=== PATIENT | female | born 1955 | race Caucasian/White ===

== ENCOUNTER 2021-03-14 23:57 | Inpatient (IN) | payer OTHER ==
[~2021-03-14] VITALS: Ht 165.1 cm; Wt 113.4 kg
--- NOTE | ~2021-03-14 | EMS ---
[facility] [address] [place] [address] EMS Patient Care Report Name: TRESA VERGARA Room #: 451-P ADM IN M.R.#: [id number] Admission: 03/15/21 Attend Phys: Brooke Barber MD Discharge: Date of : 59 Report #: [id number] THIS REPORT FOR: //name// Report Transmitted: 03/17/2021 10:23 EMS Care Summary [place], [place]/[facility] Incident [id number] @ 03/14/2021 23:29 Incident Location [address] [place] [id number] Patient TRESA VERGARA Female, 66 Years 1955 Patient Address Patient History Multiple Sclerosis, Chief Complaint dizziness Disposition Transported No Lights/[place] Dispatch Reason Unconscious/Fainting Transported To [facility] Narrative pt met at the front door pt went back to chair and sat down. possible otto per dispatch. pt a&ox4 gcs 15 and did not present in apparent distress. ems asked pt from doorway if she is covid positive. pt stated "I dont know what that means". ems asked pt multiple times about her covid status and how that is imperative information before continuing. pt stated she is negative. pt complained of dizziness and nausea x1 week. pt stated she has ms and the exacerbations present this way. pt requested to be transported to [facility]. pt walked to ems cot at front [facility]. pt was transferred onto ems cot and was secured in a semi fowlers position without incident. pt was loaded into ambulance. pt was transported non emergent. transport was uneventful and pt [facility] [address] [place] [address] EMS Patient Care Report Name: TRESA VERGARA Room #: 451-P ADM IN M.R.#: [id number] Admission: 03/15/21 Attend Phys: Brooke Barber MD Discharge: Date of : 59 Report #: [id number] rested on ems cot. pt care was transferred to appropriate staff and ems goes back in service. at hospital pt stated to staff that she is suicidal and attempted to kill herself several days ago. pt made no statement of si to ems. pts cane was left with pt. Initial Vitals @23:42P: 80,R: 20,BP: 194/72,Pain: 0/10,GCS: 15,SpO2: 94,Revised Trauma: 12, @23:50R: 20,BP: 188/74,GCS: 15,SpO2: 98,Revised Trauma: 12, Assessments @23:33MENTAL:No Abnormalities,SKIN:No Abnormalities,HEENT:Head/Face: No Abnormalities,Eyes: No Abnormalities,Neck/Airway: No Abnormalities,LUNG SOUNDS:General: No Abnormalities,Left Upper: No Abnormalities,Right Upper: No Abnormalities,Left Lower: No Abnormalities,Right Lower: No Abnormalities,ABDOMEN:General: No Abnormalities,Left Upper: No Abnormalities,Right Upper: No Abnormalities,Left Lower: No Abnormalities,Right Lower: No Abnormalities,PELVIS//GI:No Abnormalities,EXTREMITIES:Left Arm: No Abnormalities,Right Arm: No Abnormalities,Left Leg: No Abnormalities,Right Leg: No Abnormalities,PULSE:NEURO:No Abnormalities,@23:49MENTAL:No Abnormalities,SKIN:No Abnormalities,HEENT:Head/Face: No Abnormalities,Eyes: No Abnormalities,Neck/Airway: No Abnormalities,LUNG SOUNDS:General: No Abnormalities,Left Upper: No Abnormalities,Right Upper: No Abnormalities,Left Lower: No Abnormalities,Right Lower: No Abnormalities,ABDOMEN:General: No Abnormalities,Left Upper: No Abnormalities,Right Upper: No Abnormalities,Left Lower: No Abnormalities,Right Lower: No Abnormalities,PELVIS//GI:No Abnormalities,EXTREMITIES:Left Arm: No Abnormalities,Right Arm: No Abnormalities,Left Leg: No Abnormalities,Right Leg: No Abnormalities,PULSE:NEURO:No Abnormalities, Impression Dizziness Procedures @23:33 ALS Assessment Response: UnchangedSucceeded Timeline 23:27,Call Received 23:27,Dispatch Notified 23:29,Dispatched 23:30,En Route 23:32,On Scene 23:33,At Patient 23:33,ALS Assessment,Response: UnchangedSucceeded, 23:42,BP: 194/72 M,PULSE: 80,RR: 20 R,SPO2: 94 Ox,ETCO2: ,BG: ,PAIN: 0,GCS: 15, 23:44,Depart Scene [address] [place] [address] EMS Patient Care Report Name: MERRICKEDOUARDTRESABENIGNO TUTTLE Room #: 451-P [facility] IN .R.#: [id number] Admission: 03/15/21 Attend Phys: Brooke Barber MD Discharge: Date of : 59 Report #: [id number] 23:50,BP: 188/74 M,PULSE: ,RR: 20 R,SPO2: 98 Ox,ETCO2: ,BG: ,PAIN: ,GCS: 15, 23:53,At Destination 00:11,Call Closed Disclaimer v1.1 Copyright 2020 [employer] This EMS Care Summary contains data elements from the applicable legal record (which may be displayed differently). It is designed to provide pertinent information for the following purposes: continuity of care, clinical quality, and state data reporting. The complete legal record is available to ED staff and administrators of the receiving hospital in [employer]'s Patient Tracker. All data is provided "as is."
[2021-03-14 23:58] VITALS: BP 185/95
[2021-03-15] MEDS ORDERED: TECFIDERA240 MG PO ×2 (00:23→03:20)
[2021-03-15] MEDS ORDERED: LISINOPRIL-HCT1 EAC1 PO (00:23)
[2021-03-15] MEDS ORDERED: FUROSEMIDE 20 M20 M1 PO (00:23)
[2021-03-15] MEDS ORDERED: FARXIGA10 MG PO ×2 (00:23→03:20)
[2021-03-15] MEDS ORDERED: PROZAC20 MG PO (00:23)
[2021-03-15] MEDS ORDERED: MYRBETRIQ50 MG PO (00:23)
[2021-03-15] MEDS ORDERED: METFORMIN HCL500 MG PO (00:24)
[2021-03-15] MEDS ORDERED: METOPROLOL TART25 MG PO (00:24)
[2021-03-15] MEDS ORDERED: POTASSIUM CHLO10 ME1 PO (00:24)
[2021-03-15] MEDS ORDERED: DULOXETINE HCL60 MG PO (00:24)
[2021-03-15 00:27] LABS: ABSOLUTE NEUTROPHILS 5.8 thou/uL (1.4-8.2); BASOPHILS 0.4 % (0.0-2.0); EOSINOPHILS 0.1 % (0.0-3.0); HEMATOCRIT 42.7 % (37.0-47.0); HEMOGLOBIN 13.7 gm/dL (12.0-15.0); LYMPHOCYTES 7.2 % (24.0-44.0); MCH 26.1 pg (26.0-34.0); MCHC 32.1 g/dL (28.0-37.0); MCV 81.3 fL (80.0-100.0); MONOCYTES 8.2 % (1.0-8.0); PLATELET COUNT 318 thou/uL (150-400); POLYS 84.1 % (36.0-66.0); RBC 5.25 mil/uL (4.20-5.00); RDW 17.3 % (10.5-14.5); WBC 6.9 thou/uL (4.0-11.0)
[2021-03-15 00:34] LABS: ANION GAP 10 mmol/L (7-16); BUN 11 mg/dL (7-18); CALCIUM 9.6 mg/dL (8.5-10.1); CHLORIDE 98 mmol/L (98-107); CO2 26 mmol/L (21-32); CREATININE 0.9 mg/dL (0.6-1.0); GLUCOSE 161 mg/dL (74-106); POTASSIUM 4.1 mmol/L (3.5-5.1); SODIUM 134 mmol/L (136-145)
[2021-03-15 00:45] LABS: ALBUMIN 3.3 g/dL (3.4-5.0); SGOT 20 U/L (15-37); SGPT 21 U/L (30-65); TOTAL BILIRUBIN 0.4 mg/dL (0.2-1.0); TOTAL PROTEIN 7.5 g/dL (6.4-8.2)
[2021-03-15 00:50] LABS: SALICYLATE < 2.0 mg/dL (2.8-20.0)
[2021-03-15 02:28] LABS: URINE BILIRUBIN NEGATIVE (Negative); URINE BLOOD 3+ (Negative); URINE CLARITY CLEAR; URINE COLOR YELLOW; URINE GLUCOSE-RANDOM* 3+ (Negative); URINE KETONES 2+ (Negative); URINE LEUKOCYTES-REFLEX NEGATIVE (Negative); URINE NITRITE-REFLEX NEGATIVE (Negative); URINE PROTEIN (DIPSTICK) 1+ (Negative); URINE SPECIFIC GRAVITY 1.025 (1.005-1.035); URINE UROBILINOGEN 0.2 E.U./dl (0.2-1.0)
[2021-03-15 02:35] LABS: AMP/METHAMP Negative (Negative); BARBITURATES Negative (Negative); BENZODIAZEPINES Negative (Negative); COCAINE Negative (Negative); METHADONE Negative (Negative); OPIATES Negative (Negative); PCP Negative (Negative)
[2021-03-15 02:59] LABS: BACTERIA-REFLEX 1-9 Few /HPF (None Seen); SQUAMOUS 0-3 Few /LPF (0-3); URINE WBC-REFLEX 0-5 Rare /HPF (0-5)
[2021-03-15 03:00] LABS: AMORPHOUS URATES Moderate /LPF (None Seen); CASTS None Seen /LPF (None Seen); MUCUS 0-3 Light strn/LPF (None Seen)
[2021-03-15] MEDS ORDERED: LIPITOR 10 MG10 M1 PO (03:19)
--- NOTE | 2021-03-15 07:11 | EKG ---
[place] [address] [facility] [place] [address] ELECTROCARDIOGRAM REPORT Name: TRESA VERGARA Room #: 170-6 ADM IN M.R.#: [id number] Admission: 03/15/21 Attend Phys: Hayes Troy MD Discharge: Date of : 59 Report #: [id number] [facility] ED Test Date: 2021-03-15 Test Time: 00:05:06 Pat Name: TRESA VERGARA Department: Room: 170 Gender: F Emergency Service Worker: MPARK : 1955 Requested By: Yajaira Hauser Order Number: [id number] MD: Wyatt lAvarez Measurements Intervals [place] Rate: 73 P: 35 TN: 160 QRS: 15 QRSD: 94 T: 58 QT: 381 QTc: 420 Interpretive Statements Sinus rhythm LVH by voltage Nonspecific T abnormalities, lateral leads Artifact in lead(s) I,II,aVR,V1,V2,V3,V4,V5,V6 Compared to ECG 12/03/2005 12:16:25 Left ventricular hypertrophy now present T-wave abnormality now present Electronically Signed On 03-15-2021 7:10:55 KEYSMITH by Wyatt Alvarez [email or web address] <ELECTRONICALLY SIGNED> By: Wyatt Alvarez MD, FACC 03/15/21 0710 0005 0005 Wyatt Alvarez MD, [facility] /EPI
[2021-03-15 08:00] VITALS: BP 185/88
[2021-03-15 12:00] VITALS: BP 163/58
[2021-03-15 16:00] VITALS: BP 140/77
[2021-03-15 18:10] VITALS: BP 152/71
[2021-03-15 19:40] VITALS: BP 151/50
[2021-03-15 20:04] VITALS: BP 150/67
[2021-03-16] VITALS (8 sets, daily range): BP systolic 148–163; BP diastolic 55–124
--- NOTE | 2021-03-16 05:10 | NUR ---
PATIENT AOX4 MAKES NEEDS KNOWN. PATIENT ADMITTED FOR UTI AND BLE CELLULITS. BLE HAS REDNESS AND DISCOLATION NO OPEN AREAS. PATIENT UPSET BECAUSE SHE LEFT HER POCKET BOOK AND HAS NO CONTACT NUMBERS FOR HER FAMILY, PROJECT MANAGEMENT DIRECTOR CONSULTED. PATIENT HAD SUCIDAL IDELATION BUT HAS NO PLAN <<I AM SCARED TO HURT MYSELF>>. PATIENT IS ABLE TO CONTRACT FOR SAFETY, NECK BAND MAKER NOTIFIED, NO NEED FOR 1:1. FALL PRECAUTION IN PLACE. PAIN CONTROLLED THIS SHIFT. PATIENT IN BED ASLEEP AT THIS TIME BREATHING REGULAR AND UNLABOURED.
[2021-03-16 05:38] LABS: HEMATOCRIT 42.3 % (37.0-47.0); HEMOGLOBIN 13.9 gm/dL (12.0-15.0); MCH 26.6 pg (26.0-34.0); MCHC 32.9 g/dL (28.0-37.0); MCV 80.7 fL (80.0-100.0); RBC 5.25 mil/uL (4.20-5.00); RDW 17.2 % (10.5-14.5); WBC 5.3 thou/uL (4.0-11.0)
[2021-03-16 06:06] LABS: CALCIUM 9.3 mg/dL (8.5-10.1); CREATININE 0.9 mg/dL (0.6-1.0); POTASSIUM 3.6 mmol/L (3.5-5.1)
--- NOTE | 2021-03-16 12:41 | 2DMMODE ---
[facility] [place] [address] 2 D/M-MODE ECHOCARDIOGRAM Name: TRESA VERGARA Room #: 451-P ADM IN M.R.#: [id number] Admission: 03/15/21 Attend Phys: Brooke Barber MD Discharge: Date of : 59 Report #: [id number] THIS REPORT FOR: cc: NO FAMILY PHYSICIAN or PCP NO FAMILY PHYSICIAN or PCP Garalnd Kline MD ~ APPROVED REPORT Study performed: 03/16/2021 11:20:17 EXAM: Comprehensive 2D, Doppler, and color-flow Echocardiogram Patient Location: Bedside Room #: [facility] Status: routine BSA: 2.17 HR: 60 bpm BP: 148/79 mmHg Rhythm: NSR Other Information Study Quality: Fair Technically limited study due to body habitus. Indications Diabetes Hypertension/HDD Morbid obesity Volumes Left Atrial Volume (Systole) Single Plane 4CH: 63.51 mL Single Plane 2CH: 42.11 mL LA ESV Index: 26.00 mL/m2 Aortic Valve AoV Peak Donny.: 1.48 m/s AO Peak Gr.: 8.77 mmHg LVOT Max P.94 mmHg LVOT Max V: 1.22 m/s Mitral Valve E/A Ratio: 0.8 MV Decel. Time: 334.66 ms MV E Max Donny.: 0.64 m/s MV A Donny.: 0.83 m/s [facility] [address] [place] [address] 2 D/M-MODE ECHOCARDIOGRAM Name: TRESA VERGARA Room #: 451-P ADM IN M.R.#: [id number] Admission: 03/15/21 Attend Phys: Dana Anderson Discharge: Date of : 59 Report #: [id number] MV PHT: 97.05 ms IVRT: 129.18 ms Pulmonary Valve PV Peak Donny.: 1.28 m/s PV Peak Gr.: 6.56 mmHg Pulmonary Vein P Vein S: 0.37 m/s P Vein A: 0.28 m/s P Vein D: 0.36 m/s P Vein A Dur.: 133.8 msec P Vein S/D Ratio: 1.03 Tricuspid Valve TR Peak Donny.: 2.59 m/s TR Peak Gr.: 26.78 mmHg PA Pressure: 27.00 mmHg Left Ventricle The left ventricle is normal size. There is normal LV segmental wall motion. There is normal left ventricular wall thickness. The left ventricular systolic function is normal. The left ventricular ejection fraction is within the normal range. LVEF is 55-60%. This study is not technically sufficient to allow evaluation of the LV diastolic function due to atrial fibrillation. Right Ventricle The right ventricle is normal size. The right ventricular systolic function is normal. Atria The left atrium size is normal. The right atrium size is normal. Aortic Valve The aortic valve is normal in structure. No aortic regurgitation is present. There is no aortic valvular stenosis. Mitral Valve The mitral valve is normal in structure. Mild mitral regurgitation. No evidence of mitral valve stenosis. Tricuspid Valve The tricuspid valve is normal in structure. There is trace to mild tricuspid regurgitation. Estimated PAP 27mmHg plus the right atrial pressure. There is no pulmonary hypertension. Pulmonic Valve [facility] [address] [place] [address] 2 D/M-MODE ECHOCARDIOGRAM Name: TRESA VERGARA Room #: 451-P [facility] IN ..#: [id number] Admission: 03/15/21 Attend Phys: Dana Anderson Discharge: Date of : 59 Report #: [id number] The pulmonary valve is normal in structure. There is no pulmonic valvular regurgitation. Great Vessels The aortic root is normal in size. IVC is not well visualized. Pericardium There is no pericardial effusion. <Conclusion> The left ventricle is normal size. There is normal LV segmental wall motion. LVEF is 55-60%. The right ventricle is normal size. The aortic valve is normal in structure. The mitral valve is normal in structure. Mild mitral regurgitation. The tricuspid valve is normal in structure. There is trace to mild tricuspid regurgitation. Estimated PAP 27mmHg plus the right atrial pressure. There is no pulmonary hypertension. The pulmonary valve is normal in structure. The aortic root is normal in size. There is no pericardial effusion. <ELECTRONICALLY SIGNED> By: Garland Kline MD 03/16/21 1241 [id number] [id number] Garland Kline MD /INF
--- NOTE | 2021-03-16 13:00 | NUR ---
Triggered d/t high BMI. Pt noted admitted with BLE cellulitis and UTI. On ABT, KCl, lasix, metformin, statin and HCTZ. PMH includes DMII, HLD, HTN, MS? and depression. [facility], reporting no changes in weight or appetite recently, however her dtr recently and she is grieving her loss. Past reports of SI, but pt with no intent at this time. BMI 41.6, pt not appropriate for nutrition education at this time r/t life events. Follow weight trends. Low nutrition risk at this time. FOOD ALLERGY: SHELLFISH.
--- NOTE | 2021-03-16 13:59 | NUR ---
PT ADMITTED RELATED TO CELLULITIS; UTI; AND UNABLE TO AMBULATE. CM REVIEWED CHART AND SPOKE WITH CARE TEAM. CM MET WITH PT AT BEDSIDE THIS DAY. PT APPEARED TO BE A&O X4. CM ROLE INTRODUCED. PT INDICATED SHE LIVES IN A HOUSE ALONE. PT INDICATED THERE ARE 2 STEPS TO ENTER, 2 STEPS THROUGH GARAGE, AND 28 STEPS TO BASEMENT LAUNDRY. PT INDICATED THAT SHE HAS A QUAD CANE FOR HOME USE. PT INDICATED SHE HAD BEEN INDEPENDENT WITH ADLS GROUND OPERATIONS SUPERVISOR. PT INIDCATED SHE HAD HH A LONG TIME AGO AND SAID SHE WOULD BE RECPTIVE TO HAVING IT AGAIN UPON DC IF RECOMMENDED. PT DOESN'T HAVE HER CELL PHONE. SHE DOESN'T KNOW HER SISTER'S NUMBER OR THAT OF HER SON IN LAW EDILSON MATA. PT'S DTR PASSED LAST WEEK AND PT IS GRIEVING. SHE INDICATED SISTER WOULD BE BEST CONTACT FOR HER OR EDILSON. SHE HAS THREE GRANDKIDS, 18,15, AND 12. PT COULDN'T RECALL HER PCP BUT SEES DR. TRE SANTOS FOR NEUROLOGY AT [facility]. CM CALLED DOCTOR'S OFFICE TO SEE IF THEY HAVE A GOOD NUMBER FOR PT'S SISTER LANA THE ONE WE HAVE ON FILE ISN'T A WORKING NUMBER. VM LEFT. PSYC CONSULTED. CM FOLLOWING REGARDING DC PLANNING.
--- NOTE | 2021-03-16 17:53 | NUR ---
ASSUMED CARE AT SHIFT CHANGE. PT A/O X 4. CALM AND PLESANT THROUGHOUT SHIFT. WORKED WITH THERAPY THIS AFTERNOON WITH [facility] [employer]. MRI HEAD COMPLETE. PT STATES FEELING BETTER. PSYCH CONSULT COMPLETE. PT IN GOOD SPIRITS MOST OF THE DAY, ONLY STATING "ALOT HAS HAPPENED THIS MONTH" IN REGARDS TO LOSS OF DAUGHTER, GEOVANNA. PT TALKED WITH FAMILY ON THE PHONE AND SHOWERED TODAY WELL. PROGRESSING TOWARDS POC GOALS.
[2021-03-17 07:00] VITALS: BP 150/69
--- NOTE | 2021-03-17 07:54 | NUR ---
Assumed pt care at 1900. A/OX4,pleasant with staff. Denies SI/HI,had a lengthy talk with the station worker at shift change and verbalized feeling better. Up with SBA/cane to the bathroom. Continent of B&B. C/o migraine,medicated per EMAR with relief reported. Fall precautions in place,calls approp for help.
--- NOTE | 2021-03-17 15:26 | NUR ---
CARE TEAM IDNICATED THAT PT HAD MILD HYDROCEPHALUS. HOSPITALIST CONSULTED NEURO SURGERY. CM SENT REFERRAL FOR HH SERVICES TO [facility] THEY HAVE PSYC NURSING. THEY ARE ABLE TO ACCEPT PT AND CAN DO A SOC ON SATURDAY. DR. RAMSAY INDICATED SHE WOULD FOLLOW FOR HOME HEALTH UNTIL PT IS ESTABLISED WITH PCP. CM TO SET PT U WITH PCP APPOINTMENT HERE UPON DC. SHOULD PT BE MEDICALLY STABLE TO DC HOME OVER THE WEEKEND CALL [facility] AND FAX ORDERS TO . PT WILL CALL FRIEND OF SON IN LAW FOR TRANSPORT HOME.
[2021-03-17] MEDS ORDERED: LYMEPAK100 MG PO (15:28)
[2021-03-17] MEDS ORDERED: MECLIZINE HCL25 MG PO (15:29)
[2021-03-17] MEDS ORDERED: NORVASC5 MG PO (15:33)
[2021-03-17] MEDS ORDERED: BUTALB-APAP-CA1 EACH PO (15:48)
[2021-03-17 18:03] VITALS: BP 131/70
--- NOTE | 2021-03-17 20:11 | NUR ---
Assumed pt care this am vs stable, POC followed with no signs or verbalizations of distrerss noted. Pt has expressed concern with regards to the neuro findings of hydrocephalus. Wanted the MD to explain more since she had more questions, advised to talk to the MD in the am. Expressed concern regarding her MS medication, Dr. Barber informed awaiting orders. Endorsed to the night nurse.
[2021-03-17 21:22] VITALS: BP 177/75
--- NOTE | 2021-03-18 03:39 | NUR ---
ASSESSMENT COMPLETED.T IS PLEASANT.SHE GOT TEARFUL TALKING ABOUT DTR WHO SHE BRRIED 2 WEEKS AGO.SHE STATED " I SHOULD HAVE BEEN THE ONE WHO ",THEN SHE BECAME TEARFUL. SHE REPORTS HAVING A FLOATING EELING AND SOME SORENESS AROUND NECK. CALLS WITH NEEDS, WILL CONINUE TO MONITOR TILL END OF SHIFT.
[2021-03-18 07:52] VITALS: BP 170/66
[2021-03-18] MEDS ORDERED: NORVASC10 MG PO (09:02)
[2021-03-18 10:47] VITALS: BP 170/66
[2021-03-18 11:22] VITALS: BP 170/66
--- NOTE | 2021-03-18 11:28 | NUR ---
Assumed pt care at 7am. Pt in bed resting and waiting for breakfast.Assessment completed. vss.Pt c/o headache. Am meds given with pain pill. Shop Worker assisted pt with shower. Dr Barber here, dc order noted.Pt called family to pick her up later this afternoon.Pt up in chair at present. Will continue to monitor.
--- NOTE | 2021-03-18 11:29 | NUR ---
PT DISCHARGING TODAY TO HOME WITH [facility] FAXED DC ORDERS/SUMMARY RECEIVED CONFIRMATION AND THEY WILL NOTIFY PT AND ARRANGE VISITS.
== END 2021-03-18 13:45 | disposition home health service (06) | DRG 603 ==
LOC: ER 23:57 → EROBS 03-15 03:11 → 4W 03-15 03:11 → EROBS 03-15 03:11 → ER 03-15 03:25 → EROBS 03-15 03:25 → 4W 03-15 19:44
PROVIDERS: Emergency Medicine; Nurse Practitioner Family; ADMIT Hospitalist; ATTEND Hospitalist
DX: L03.116 Cellulitis of left lower limb (principal); N39.0 Urinary tract infection, site not specified; G91.2 (Idiopathic) normal pressure hydrocephalus; Z68.41 Body mass index [BMI] 40.0-44.9, adult; L03.115 Cellulitis of right lower limb; Z20.822 Contact with and (suspected) exposure to COVID-19; F32.A Depression, unspecified; I10 Essential (primary) hypertension; R82.4 Acetonuria; E11.42 Type 2 diabetes mellitus with diabetic polyneuropathy; E78.5 Hyperlipidemia, unspecified; R53.81 Other malaise; E66.9 Obesity, unspecified; F43.21 Adjustment disorder with depressed mood; R41.0 Disorientation, unspecified; Z91.041 Radiographic dye allergy status; Z79.899 Other long term (current) drug therapy; Z23 Encounter for immunization
CPT/HCPCS: 10040